=== PATIENT | female | born 1960 | race Hispanic/Latino ===

== ENCOUNTER 2018-07-29 07:14 | Emergency (ER) | payer MEDICAID ==
[2018-07-29 07:20] VITALS: BMI 20.1
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
[2018-07-29 09:42] LABS: BASO % 0.5 % (0.0-2.0); EOS % 0.6 % (0.0-4.0); HEMOGLOBIN 14.1 g/dL (12.0-16.0); LYMPH # 1.2 K/uL (1.0-4.3); LYMPH % 20.5 % (20.0-40.0); MEAN CELL VOLUME 93.9 fl (81.0-99.0); MEAN CORPUSCULAR HEMOGLOBIN 32.8 pg (27.0-31.0); MEAN PLATELET VOLUME 7.3 fl (7.2-11.7); MONO # 0.4 K/uL (0.0-0.8); MONO % 6.8 % (0.0-10.0); NEUT # 4.1 K/uL (1.8-7.0); NEUT % 71.6 % (50.0-75.0); NRBC % 0.1 % (0.0-0.0); RBC 4.3 Mil/uL (3.80-5.20); WHITE BLOOD COUNT 5.7 K/uL (4.8-10.8)
[2018-07-29 09:51] LABS: SQUAMOUS EPITHIAL 6 /hpf (0-5); URINE BACTERIA MOD (<OCC); URINE BILIRUBIN NEGATIVE (NEGATIVE); URINE BLOOD SMALL (NEGATIVE); URINE CLARITY CLOUDY (Clear); URINE COLOR YELLOW (YELLOW); URINE GLUCOSE (UA) NEG (NEGATIVE); URINE LEUKOCYTE ESTERASE LARGE Leu/uL (Negative); URINE PROTEIN 30 mg/dL (NEGATIVE); URINE UROBILINOGEN 0.2-1.0 mg/dL (0.2-1.0)
[2018-07-29 09:55] LABS: ALB/GLOB RATIO 1.5 (1.0-2.1); ALBUMIN 4.9 g/dL (3.5-5.0); ALT/SGPT 17 U/L (9-52); AST/SGOT 29 U/L (14-36); BLOOD UREA NITROGEN 11 mg/dl (7-17); CALCIUM 10.1 mg/dL (8.4-10.2); GFR NON-AFRICAN AMERICAN > 60
[2018-07-29 10:10] LABS: BARBITURATES, UR NEGATIVE (NEGATIVE); BENZODIAZEPINES, UR NEGATIVE (NEGATIVE); OPIATES, UR NEGATIVE (NEGATIVE); PHENCYCLIDINE, UR NEGATIVE (NEGATIVE)
--- NOTE | 2018-07-29 15:11 | ED PDOC ---
- Laboratory Results Result Diagrams: 07/29/18 09:03 07/29/18 09:03 Lab Results: Total Bilirubin 0.6 mg/dl (0.2-1.3) 07/29/18 09:03 AST 29 U/L (14-36) 07/29/18 09:03 ALT 17 U/L (9-52) 07/29/18 09:03 Alkaline Phosphatase 72 U/L (38-126) 07/29/18 09:03 Total Protein 8.3 G/DL (6.3-8.2) H 07/29/18 09:03 Albumin 4.9 g/dL (3.5-5.0) 07/29/18 09:03 Globulin 3.4 gm/dL (2.2-3.9) 07/29/18 09:03 Albumin/Globulin Ratio 1.5 (1.0-2.1) 07/29/18 09:03 Urine Color Yellow (YELLOW) 07/29/18 08:47 Urine Clarity Cloudy (Clear) 07/29/18 08:47 Urine pH 5.0 (5.0-8.0) 07/29/18 08:47 Ur Specific [place] 1.021 (1.003-1.030) 07/29/18 08:47 Urine Protein 30 mg/dL (NEGATIVE) 07/29/18 08:47 Urine Glucose (UA) Neg mg/dL (NEGATIVE) 07/29/18 08:47 Urine Ketones Negative mg/dL (NEGATIVE) 07/29/18 08:47 Urine Blood Small (NEGATIVE) 07/29/18 08:47 Urine Nitrate Negative (NEGATIVE) 07/29/18 08:47 Urine Bilirubin Negative (NEGATIVE) 07/29/18 08:47 Urine Urobilinogen 0.2-1.0 mg/dL (0.2-1.0) 07/29/18 08:47 Ur Leukocyte Esterase Large Josselin/uL (Negative) 07/29/18 08:47 Urine RBC (Auto) 5 /hpf (0-3) H 07/29/18 08:47 Urine Microscopic WBC 80 /hpf (0-5) H 07/29/18 08:47 Ur Squamous Epith Cells 6 /hpf (0-5) H 07/29/18 08:47 Urine Bacteria Mod (<OCC) H 07/29/18 08:47 - ECG O2 Sat by Pulse Oximetry: 98 (RA) Medical Decision Making Medical Decision Makin:00 Patient endorsed to this provider from Dr. Islas. Pending [facility] screen. 18:00 Patient started to become agitated reporting she was feeling anxious, but at this time declines any medication. 00:00 --Patient signed out to Dr. Wilkes by this provider pending [facility] screening. Scribe Attestation: Documented by Connor Morel acting as a scribe for Samina Brunson MD. Provider Scribe Attestation: All medical record entries made by the Scribe were at my direction and personally dictated by me. I have reviewed the chart and agree that the record accurately reflects my personal performance of the history, physical exam, medical decision making, and the department course for this patient. I have also personally directed, reviewed, and agree with the discharge instructions and disposition. Disposition - Clinical Impression Clinical Impression: UTI (urinary tract infection), Paranoia - POA Present On Arrival: None - Disposition Disposition: Transfer of Care Disposition Time: 00:00 Condition: STABLE Patient Signed Over To: Jonas Wilkes
[2018-07-29] MEDS ORDERED: Naproxen 500 MG TAB PO STA (15:30)
[2018-07-29] MEDS ORDERED: Naproxen 500 MG TAB PO ONE (15:37)
--- NOTE | 2018-07-29 20:31 | CARD ---
APPROVED REPORT Date of service: 07/29/2018 EKG Measurement Heart [id number] <Conclusion> Normal sinus rhythm Normal ECG
--- NOTE | 2018-07-30 00:26 | ED PDOC ---
- Laboratory Results Result Diagrams: 07/29/18 09:03 07/29/18 09:03 Lab Results: Total Bilirubin 0.6 mg/dl (0.2-1.3) 07/29/18 09:03 AST 29 U/L (14-36) 07/29/18 09:03 ALT 17 U/L (9-52) 07/29/18 09:03 Alkaline Phosphatase 72 U/L (38-126) 07/29/18 09:03 Total Protein 8.3 G/DL (6.3-8.2) H 07/29/18 09:03 Albumin 4.9 g/dL (3.5-5.0) 07/29/18 09:03 Globulin 3.4 gm/dL (2.2-3.9) 07/29/18 09:03 Albumin/Globulin Ratio 1.5 (1.0-2.1) 07/29/18 09:03 Urine Color Yellow (YELLOW) 07/29/18 08:47 Urine Clarity Cloudy (Clear) 07/29/18 08:47 Urine pH 5.0 (5.0-8.0) 07/29/18 08:47 Ur Specific [place] 1.021 (1.003-1.030) 07/29/18 08:47 Urine Protein 30 mg/dL (NEGATIVE) 07/29/18 08:47 Urine Glucose (UA) Neg mg/dL (NEGATIVE) 07/29/18 08:47 Urine Ketones Negative mg/dL (NEGATIVE) 07/29/18 08:47 Urine Blood Small (NEGATIVE) 07/29/18 08:47 Urine Nitrate Negative (NEGATIVE) 07/29/18 08:47 Urine Bilirubin Negative (NEGATIVE) 07/29/18 08:47 Urine Urobilinogen 0.2-1.0 mg/dL (0.2-1.0) 07/29/18 08:47 Ur Leukocyte Esterase Large Josselin/uL (Negative) 07/29/18 08:47 Urine RBC (Auto) 5 /hpf (0-3) H 07/29/18 08:47 Urine Microscopic WBC 80 /hpf (0-5) H 07/29/18 08:47 Ur Squamous Epith Cells 6 /hpf (0-5) H 07/29/18 08:47 Urine Bacteria Mod (<OCC) H 07/29/18 08:47 - ECG O2 Sat by Pulse Oximetry: 98 (RA) Pulse Ox Interpretation: Normal Medical Decision Making Medical Decision Makin:00 Patient signed out to this provider pending [facility] screening. 03:12 Patient was screened and accepted by [facility]. Diagnosis is psychosis. She will be awaiting transfer pending [facility] bed availability. 07:00 Patient signed out to Dr. Tang pending [facility] bed availability. Scribe Attestation: Documented by Sheela Lopez acting as a scribe for Jonas Wilkes MD Provider Scribe Attestation: All medical record entries made by the Scribe were at my direction and per sonally dictated by me. I have reviewed the chart and agree that the record accurately reflects my personal performance of the history, physical exam, medical decision making, and the department course for this patient. I have also personally directed, reviewed, and agree with the discharge instructions and disposition. Disposition - Clinical Impression Clinical Impression: UTI (urinary tract infection), Psychosis - POA Present On Arrival: None - Disposition Disposition: Transfer of Care Disposition Time: 07:00 Condition: FAIR Forms: Mozido (Iranian) Patient Signed Over To: Geoffrey Tang
[2018-07-30 06:23] VITALS: O2SAT 98
--- NOTE | 2018-07-30 07:00 | ED PDOC ---
- Laboratory Results Result Diagrams: 07/29/18 09:03 07/29/18 09:03 Lab Results: Total Bilirubin 0.6 mg/dl (0.2-1.3) 07/29/18 09:03 AST 29 U/L (14-36) 07/29/18 09:03 ALT 17 U/L (9-52) 07/29/18 09:03 Alkaline Phosphatase 72 U/L (38-126) 07/29/18 09:03 Total Protein 8.3 G/DL (6.3-8.2) H 07/29/18 09:03 Albumin 4.9 g/dL (3.5-5.0) 07/29/18 09:03 Globulin 3.4 gm/dL (2.2-3.9) 07/29/18 09:03 Albumin/Globulin Ratio 1.5 (1.0-2.1) 07/29/18 09:03 Urine Color Yellow (YELLOW) 07/29/18 08:47 Urine Clarity Cloudy (Clear) 07/29/18 08:47 Urine pH 5.0 (5.0-8.0) 07/29/18 08:47 Ur Specific [place] 1.021 (1.003-1.030) 07/29/18 08:47 Urine Protein 30 mg/dL (NEGATIVE) 07/29/18 08:47 Urine Glucose (UA) Neg mg/dL (NEGATIVE) 07/29/18 08:47 Urine Ketones Negative mg/dL (NEGATIVE) 07/29/18 08:47 Urine Blood Small (NEGATIVE) 07/29/18 08:47 Urine Nitrate Negative (NEGATIVE) 07/29/18 08:47 Urine Bilirubin Negative (NEGATIVE) 07/29/18 08:47 Urine Urobilinogen 0.2-1.0 mg/dL (0.2-1.0) 07/29/18 08:47 Ur Leukocyte Esterase Large Josselin/uL (Negative) 07/29/18 08:47 Urine RBC (Auto) 5 /hpf (0-3) H 07/29/18 08:47 Urine Microscopic WBC 80 /hpf (0-5) H 07/29/18 08:47 Ur Squamous Epith Cells 6 /hpf (0-5) H 07/29/18 08:47 Urine Bacteria Mod (<OCC) H 07/29/18 08:47 - ECG O2 Sat by Pulse Oximetry: 98 (RA) - Progress ED Course And Treament: 1623: Dr. Cuellar to take over care. Fu with [facility]. Medical Decision Making Medical Decision Makin:00 Patient endorsed to provider by Dr. Wilkes pending [facility] bed availability for involuntary psychiatry. ---- Scribe Attestation: Documented by Trevin Levin, acting as a scribe for Geoffrey Tang MD Provider Scribe Attestation: All medical record entries made by the Scribe were at my direction and personally dictated by me. I have reviewed the chart and agree that the record accurately reflects my personal performance of the history, physical exam, medical decision making, and the department course for this patient. I have also personally directed, reviewed, and agree with the discharge instructions and disposition. Disposition - Clinical Impression Clinical Impression: UTI (urinary tract infection), Psychosis - POA Present On Arrival: None - Disposition Disposition: Transfer of Care Disposition Time: 16:24 Condition: STABLE
[2018-07-30] MEDS ORDERED: Naproxen 500 MG TAB PO STA (08:58)
[2018-07-30] MEDS ORDERED: Naproxen 500 MG TAB PO ONE (09:05)
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
[2018-07-30 18:01] VITALS: BP 132/76; PULSE 72; RESP 16; TEMP 98.1
== END 2018-07-30 17:59 | disposition short-term general hospital (02) ==
LOC: H.ER 07:14
DX: F29 Unspecified psychosis not due to a substance or known physiological condition (principal); N39.0 Urinary tract infection, site not specified; Z88.8 Allergy status to other drugs, medicaments and biological substances
CPT/HCPCS: 80053; 81003; 81025; 85025; 93005; 99285; G0480